=== PATIENT | male | born 1975 | race African-American/Black ===

== ENCOUNTER 2020-11-01 18:58 | Inpatient (IN) | payer OTHER, SELFPAY ==
[~2020-11-01] VITALS: Ht 170.2 cm; Wt 104.3 kg
[2020-11-01 19:23] VITALS: BP 206/117
--- NOTE | 2020-11-01 19:45 | NUR ---
RECEIVED PT FROM TRIAGE, HE IS AOX4 ON ROOM AIR CC LWFT LOWER LEG WOUND. WOUND IS OPEN WITH WOUND BED YELLOW EDGES OF WOUND IS DARK, PT SAID THERE IS MILD GINNY IN WOUND, MOSTLY PT IS ANXIOUS WITH ELEVATED B/P.
[2020-11-01] MEDS ORDERED: LABETALOL 100 MG/20 ML VIAL IVP ONE ×2 (20:00→22:10)
[2020-11-01] MEDS ORDERED: cefTRIAXone 2,000 MG in DEXTROSE 5% 100 ML IV ONE (20:00)
[2020-11-01] MEDS ORDERED: cefTRIAXone 2,000 MG VIAL ONE (20:26)
[2020-11-01 20:42] LABS: BASOPHILS % (AUTO) 0.6 % (0.0-2.0); EOSINOPHILS # (AUTO) 0.2 K/uL (0-0.4); HEMATOCRIT 42.2 % (36-52); LYMPHOCYTES # (AUTO) 1.9 K/uL (2.0-11.5); LYMPHOCYTES % (AUTO) 34.5 % (20.5-51.1); MEAN CORPUSCULAR HEMOGLOBIN 27 pg (27-31); MEAN CORPUSCULAR HGB CONC 33 g/dL (33-37); MEAN CORPUSCULAR VOLUME 82.7 fL (80-94); MONOCYTES # (AUTO) 0.3 K/uL (0.8-1.0); MONOCYTES % (AUTO) 5.9 % (1.7-9.3); NEUTROPHILS # (AUTO) 3.1 K/uL (1.8-7.7); PLATELET COUNT (AUTO) 213 K/uL (140-450); RED BLOOD CELL COUNT(AUTO) 5.11 MIL/uL (4.20-6.10); WHITE BLOOD COUNT (AUTO) 5.5 K/uL (4.8-10.8)
--- NOTE | 2020-11-01 20:45 | NUR ---
PT B/P WAS RETAKEN AND TI WAS 236/124, NOTIFED WHOM ORDERED 20MG LABETALOL IVP. IV SITE PROVIDED TO RIGHT HAND 22G X1 ATTEMPT. LABETALOL GIVEN, WELL ORDERED 2MG ROCEPHINE LABS DONE AT BEDSIDE. TEACHING REGARDING MEDICATIONS AND IT 'S PURPOSES PROVIDED TO PT AND FAMILY AT BEDSIDE, ACKNOWLEDGED EDUCTION.
[2020-11-01 21:07] LABS: ALBUMIN 4.2 g/dL (3.4-5.0); ANION GAP 15.3 (8-16); CARBON DIOXIDE 27.8 mmol/L (21-32); CREATININE 1.1 mg/dL (0.6-1.3); POTASSIUM 4.1 mmol/L (3.5-5.1); TOTAL BILIRUBIN 0.3 mg/dL (0.0-1.0)
--- NOTE | 2020-11-01 21:24 | NUR ---
AT BEDSIDE, PIC OF WOUND AND MEASUREMENT DONE, 1.5CM X1CM X0.5DEPTH. WOUND BED DRAINDG SEROSANGENOUS FLUID ALSO NOTED WITH YELLOW SLOUGH OF WOUND BED.
--- NOTE | 2020-11-01 21:48 | NUR ---
X-Ray at bedside.
--- NOTE | 2020-11-01 21:58 | NUR ---
REASSES OF B/P IS 223/110 NOTIFED MD SHE WILL ORDER ORAL B/P MEDS.
[2020-11-01] MEDS ORDERED: amLODIPine 5 MG TAB PO ONE (22:10)
[2020-11-01] MEDS ORDERED: MORPHINE SULFATE 2 MG/ML SYR IVP PRN ×2 (22:55→23:00)
[2020-11-01] MEDS ORDERED: NACL 0.9% 1,000 ML IV SCH (22:55)
[2020-11-01] MEDS ORDERED: ACETAMINOPHEN 325 MG TAB PO PRN (22:55)
[2020-11-01] MEDS ORDERED: ONDANSETRON 4 MG/2 ML VIAL IVP PRN (22:55)
[2020-11-01] MEDS ORDERED: VANCOMYCIN PER PHARMACY MC PRN ×2 (23:00→23:15)
[2020-11-01] MEDS ORDERED: INSULIN LISPRO SLIDING SCALE 100 UNITS/ML VIAL SUBQ PRN (23:00)
[2020-11-01] MEDS ORDERED: DEXTROSE 50% 50 ML SYR IVP PRN ×2 (23:00→23:15)
[2020-11-02] MEDS ORDERED: VANCOMYCIN 1,000 MG VIAL ONE (00:06)
[2020-11-02] MEDS ORDERED: VANCOMYCIN 500 MG in DEXTROSE 5% 100 ML IV ONE (00:30)
[2020-11-02] MEDS ORDERED: VANCOMYCIN 1GM/DEXT 5% PREMIX 200 ML IV ONE (00:30)
[2020-11-02] MEDS: NACL 0.9% 1,000 ML IV SCH ×4 (01:00→23:04)
--- NOTE | 2020-11-02 01:00 | NUR ---
HUNG ORDERED VANCOMYCIN WELL ORDERED FLUIDS OF N/S. RETAKE OF V/S FOLLOWS: T 97.7 P 66 R 20 B/P 175/95 02 99% ON ROOM AIR.
--- NOTE | 2020-11-02 02:12 | NUR ---
BLOOD PRESSURE RECHECK IS 174/90 WILL CONTINUE TO MONITOR PT B/P.
--- NOTE | 2020-11-02 06:10 | NUR ---
PT IN BED RESTING WITH EYES CLOSED V/S FOLLOWS: T 97.9 P 60 R 15 B/P 127/57 02 100% ON ROOM AIR.
[2020-11-02 06:20] LABS: BASOPHILS % (AUTO) 0.6 % (0.0-2.0); EOSINOPHILS # (AUTO) 0.1 K/uL (0-0.4); EOSINOPHILS % (AUTO) 1.9 % (0.0-4.0); HEMATOCRIT 40.4 % (36-52); HEMOGLOBIN 13.4 g/dL (12.0-18.0); LYMPHOCYTES # (AUTO) 1.8 K/uL (2.0-11.5); LYMPHOCYTES % (AUTO) 29.3 % (20.5-51.1); MEAN CORPUSCULAR HEMOGLOBIN 28 pg (27-31); MEAN CORPUSCULAR HGB CONC 33 g/dL (33-37); MEAN CORPUSCULAR VOLUME 82.9 fL (80-94); MONOCYTES # (AUTO) 0.4 K/uL (0.8-1.0); MONOCYTES % (AUTO) 6.3 % (1.7-9.3); NEUTROPHILS # (AUTO) 3.7 K/uL (1.8-7.7); NEUTROPHILS % (AUTO) 61.9 % (42.2-75.2); PLATELET COUNT (AUTO) 191 K/uL (140-450); RED BLOOD CELL COUNT(AUTO) 4.87 MIL/uL (4.20-6.10); RED CELL DISTRIBUTION WIDTH 13.7 % (11.6-13.7); WHITE BLOOD COUNT (AUTO) 6.1 K/uL (4.8-10.8)
[2020-11-02] MEDS: INSULIN LISPRO SLIDING SCALE 100 UNITS/ML VIAL SUBQ PRN ×4 (06:33→21:03)
--- NOTE | 2020-11-02 06:45 | NUR ---
FINGERSTICK IS 310, PT GIVEN 8 UNITS OF HUMALOG PER SLIDING SCALE. EDUCATED REGARDING DIABETITES PROTOCOL, PT VERBELIZED UNDERSTADING OF DIABETES TEACHING AND INSULIN.
[2020-11-02 06:55] LABS: ALBUMIN 3.5 g/dL (3.4-5.0); ANION GAP 13.6 (8-16); CARBON DIOXIDE 26.1 mmol/L (21-32); CREATININE 1.1 mg/dL (0.6-1.3); POTASSIUM 3.7 mmol/L (3.5-5.1); TOTAL BILIRUBIN 0.2 mg/dL (0.0-1.0)
--- NOTE | 2020-11-02 07:15 | NUR ---
REPORT RECEIVED FROM SHILA SAGE FOR CONTINUITY OF CARE
[2020-11-02] MEDS: BLOOD GLUCOSE MONITORING 1 DEV DEV FS SCH ×4 (07:30→20:55)
[2020-11-02] MEDS ORDERED: BLOOD GLUCOSE MONITORING 1 DEV DEV FS SCH (07:30)
--- NOTE | 2020-11-02 07:42 | NUR ---
RECEIVED REPORT FROM ED NURSE. AWAITING PT ARRIVAL TO [facility].
--- NOTE | 2020-11-02 07:45 | NUR ---
Patient will be admitted to care of DR MOREIRA. Admited to TELEMETRY. Will go to room 129 -A. Belongings list completed. Report to NABOR SAGE.
[2020-11-02 08:00] VITALS: BP 186/110
--- NOTE | 2020-11-02 08:01 | NUR ---
PT ARRIVED TO [facility]. ORIENTED TO ROOM. CALL LIGHT IN REACH. ALL SAFETY MEASURES IN PLACE.
--- NOTE | 2020-11-02 10:24 | NUR ---
PT RESTING. NO S/S OF DISTRESS. SYMMETRICAL CHEST RISE AND FALL. CALL LIGHT IN REACH. ALL SAFETY MEASURES IN PLACE
[2020-11-02] MEDS: VANCOMYCIN HCL 1.25 GM in NACL 0.9% 250 ML IV SCH ×2 (11:53→23:04)
[2020-11-02 12:00] VITALS: BP 186/110
--- NOTE | 2020-11-02 12:34 | NUR ---
DISCUSSED PLAN OF CARE WITH PT. PT VERBALIZED UNDERSTANDING. INFORMED PT OF WOUND CONSULT AND WOUND CARE TO BE PERFORMED.PATIENT VERBALIZED UNDERSTANDING. CALL LIGHT WITHIN REACH. ALL SAFETY MEASURES IN PLACE.
--- NOTE | 2020-11-02 14:42 | NUR ---
REASSESSED PT BP, 177/110. EDUCATED PT ABOUT PRN BLOOD PRESSURE MEDICATIONS PER MD ORDERS. PATIENT VERBALIZED UNDERSTANDING. CALL LIGHT WITHIN REACH. ALL SAFETY MEASURES IN PLACE.
--- NOTE | 2020-11-02 14:58 | NUR ---
FNS CONSULT FOR WOUNDS/PRESSURE INJURIES WAS RECEIVED. PATIENT WAS SCREENED HIGH NUTRITION RISK AND WILL BE ASSESSED 1-2 DAYS WITHIN ADMISSION. 11/02/20-11/03/[address]
[2020-11-02] MEDS: hydrALAZINE 10 MG TAB PO PRN (15:00)
--- NOTE | 2020-11-02 15:11 | NUR ---
WOUND CARE EVALUATION NOTE: LLE TRAUMA WOUND WITH FULL THICKNESS SKIN LOSS 2X1X0.5CM WOUND BED 50% GRANULATING TISSUE, 50% OF SCATTERED YELLOW SLOUGH, SMALL AMOUNT YELLOW SEROUS DRAINAGE, NO UNDERMINING, NO TUNNELING WOUND EDGE FLAT, ABNER WOUND SKIN DRY SCABBING SKIN WITH PIGMENTATION, NO SWELLING NO ERYTHEMA, NO INDURATION. PAIN 2/10. POC DISCUSSED WITH PRIMARY RN , AND PT. ALL QUESTIONS ANSWERED. WOUND CARE TEACHING DONE. PT. VERBALIZES UNDERSTANDING. PENDING ID CONSULT. RECOMMENDATION: -CLEANSE LLE WITH NS, PAT DRY, APPLY THERAHONEY GEL TO WOUND BED AND PACK WITH ADAPTIC DRESSING, COVER WITH DRY DRESSING QD AND PRN IF SOILING. PLEASE KEEP AREA DRY AND CLEAN. -PLEASE COMPLEAT ANTIBIOTIC ORDERED
--- NOTE | 2020-11-02 15:13 | NUR ---
PT EDUCATED ON ACCU CHECKS AND INSULIN COVERAGE. PATIENT VERBALIZED UNDERSTANDING. PT STABLE WITH NO S/S OF DISTRESS. CALL LIGHT IN REACH. ALL SAFETY MEASURES IN PLACE.
[2020-11-02 16:00] VITALS: BP 170/89
[2020-11-02] MEDS: THERAHONEY GEL 42.5 GM TP SCH (16:29)
--- NOTE | 2020-11-02 16:53 | NUR ---
PT RECEIVED INSULIN PER MD ORDERS. NO S/S OF DISTRESS. PATIENT RESTING WITH FAMILY IN ROOM. CALL LIGHT WITHIN REACH. ALL SAFETY MEASURES IN PLACE.
[2020-11-02 18:23] VITALS: BP 170/89
--- NOTE | 2020-11-02 19:12 | NUR ---
REPORT GIVEN TO NIGHT NURSE FOR CONTINUITY OF CARE. PT STABLE. CALL LIGHT IN REACH. ALL SAFETY MEASURES IN PLACE
[2020-11-02 20:48] VITALS: BP 158/94
[2020-11-02] MEDS: NACL 0.9% IRR 250 ML BOTTLE IR SCH (20:49)
[2020-11-03 00:18] VITALS: BP 156/97
[2020-11-03 04:35] VITALS: BP 157/110
--- NOTE | 2020-11-03 05:20 | NUR ---
PATIENT REFUSES MORNING LABORATORY BLOOD DRAW. RIMA PAULSON RN
[2020-11-03] MEDS: BLOOD GLUCOSE MONITORING 1 DEV DEV FS SCH ×4 (05:53→22:50)
[2020-11-03] MEDS: NACL 0.9% 1,000 ML IV SCH ×3 (05:53→22:37)
--- NOTE | 2020-11-03 05:56 | NUR ---
RETURNED TELEMETRY BOX TO [employer]TERATION TAILOR AND EDUCATED PATIENT ON LAB DRAW REFUSAL. HE AGREES WITH LATER DRAW FOR MORNING LABS. LAB NOTIFICATION SENT. RIMA PAULSON RN
[2020-11-03] MEDS: INSULIN LISPRO SLIDING SCALE 100 UNITS/ML VIAL SUBQ PRN ×3 (07:15→22:52)
--- NOTE | 2020-11-03 07:35 | NUR ---
RECEIVED BEDSIDE REPORT FROM FOLDING RULES PRINTING MACHINE OPERATOR NURSE FOR CONTINUITY OF CARE. PT IS AWAKE AND ALERT. A&OX4. ON RA WITH BREATHING UNLABORED. AMBULATORY. SKIN IS WARM AND DRY. PT IS STABLE. PLAN OF CARE DISCUSSED ALL SAFEETY MEASURES ON PLACE, CALLS LIGHT WITHIN REACH
--- NOTE | 2020-11-03 07:41 | NUR ---
PATIENT HANDOFF WITH CHU HUNT. RIMA PAULSON RN
[2020-11-03 08:00] VITALS: BP 148/95
--- NOTE | 2020-11-03 09:40 | NUR ---
PT SITTING ON BED NO COMPLAINS AT THIS TIME, HIS NEXT TO HIM, WOUND CULTURE WAS TAKEN. BLOOD WORK TAKEN. PT HAS NO COMPLAINS
[2020-11-03] MEDS: NACL 0.9% IRR 250 ML BOTTLE IR SCH ×2 (09:41→21:00)
[2020-11-03 10:43] LABS: BASOPHILS % (AUTO) 0.8 % (0.0-2.0); EOSINOPHILS # (AUTO) 0.2 K/uL (0-0.4); HEMATOCRIT 41.8 % (36-52); LYMPHOCYTES # (AUTO) 1.8 K/uL (2.0-11.5); MEAN CORPUSCULAR HEMOGLOBIN 27 pg (27-31); MEAN CORPUSCULAR HGB CONC 34 g/dL (33-37); MEAN CORPUSCULAR VOLUME 81.6 fL (80-94); MONOCYTES # (AUTO) 0.3 K/uL (0.8-1.0); NEUTROPHILS # (AUTO) 3.3 K/uL (1.8-7.7); NEUTROPHILS % (AUTO) 59.2 % (42.2-75.2); PLATELET COUNT (AUTO) 198 K/uL (140-450); RED BLOOD CELL COUNT(AUTO) 5.12 MIL/uL (4.20-6.10); RED CELL DISTRIBUTION WIDTH 13.8 % (11.6-13.7); WHITE BLOOD COUNT (AUTO) 5.6 K/uL (4.8-10.8)
--- NOTE | 2020-11-03 10:44 | NUR ---
DC PLANNING: CALLED DR CABA AND NOTIFIED HIM THAT DR ALDRIDGE ORDERED BONE SCAN AND OK TO CANCEL MRI. PER DR CABA TO HOLD OFF ON ORTHO CONSULT BECAUSE IT'S A CHRONIC AVULSION FRACTURE. CM TO FOLLOW Addendum: 11/05/20 at 1521 by Faye Byrnes RN DC PLANNING: FAXED THE ORDER TO [facility] , [place] , [facility] . [facility] DENIED THE CASE ,AWAITING FOR HOME HEALTH TO ACCEPT PATIENT Addendum: 11/05/20 at 1631 by Faye Byrnes RN DC PLANNING: RECEIVED A CALLED FROM [facility] STATED THEY ARE NOT CONTRACTED WITH [employer] CALLED [employer] [phone] LEFT AND MESSAGE.
[2020-11-03 10:50] LABS: ANION GAP 13.6 (8-16); CARBON DIOXIDE 25.4 mmol/L (21-32)
--- NOTE | 2020-11-03 11:13 | NUR ---
PT SITTING ON BED NO COMPLAINS AT THIS TIME, HIS NEXT TO HIM, PT SUPPOSED TO BONE SCAN TODAY, SCAN PROBABLY GONNA BE TOMORROW SINCE THE SCAN MACHINE NOT WORKING . ALL SAFETY MEASURES ON PLACE CALLS LIGHT WITHIN REACH
[2020-11-03] MEDS: VANCOMYCIN HCL 1.25 GM in NACL 0.9% 250 ML IV SCH ×2 (11:57→22:52)
[2020-11-03 12:00] VITALS: BP 149/94
[2020-11-03] MEDS: THERAHONEY GEL 42.5 GM TP SCH (13:00)
--- NOTE | 2020-11-03 13:25 | NUR ---
PT SITTING ON BED NO COMPLAINS AT THIS TIME, HIS NEXT TO HIM. PT HAS NO COMPLAINS ALL SAFETY MEASURES ON PLACE, CALLS LIGHT WITHIN REACH
--- NOTE | 2020-11-03 14:33 | NUR ---
11/03/20 RD INITIAL ASSESSMENT COMPLETED PLEASE REFER TO NUTRITION ASSESSMENT UNDER CARE ACTIVITY FOR ESTIMATED NUTRITIONAL NEEDS. [facility]. [facility] TOL[facility] 2. NUTRITIONAL EDUCATION WAS PROVIDED. 3. RD TO FOLLOW-UP 3-5 DAYS, MODERATE RISK FLOYD BERRIOS RD
--- NOTE | 2020-11-03 15:35 | NUR ---
WALKING IN HIS ROOM NO COMPLAINS AT THIS TIME, HIS NEXT TO HIM. PT HAS NO COMPLAINS ALL SAFETY MEASURES ON PLACE.
[2020-11-03 16:00] VITALS: BP 151/91
--- NOTE | 2020-11-03 16:52 | NUR ---
LATE ENTRY---- VANCOMYCIN DISCONTINUED AT 0745 UPON TRANSFER TO FLOOR. ROCEPHIN DISCONTINUED AT 0745 UPON TRANSFER TO FLOOR.
--- NOTE | 2020-11-03 17:40 | NUR ---
PT SITTING ON BED NO COMPLAINS AT THIS TIME, HIS NEXT TO HIM. PT HAS NO COMPLAINS ALL SAFETY MEASURES ON PLACE, CALLS LIGHT WITHIN REACH
--- NOTE | 2020-11-03 19:15 | NUR ---
report given to earthmoving plant operator nurse
[2020-11-03 21:29] VITALS: BP 160/82
[2020-11-04] MEDS: BLOOD GLUCOSE MONITORING 1 DEV DEV FS SCH ×4 (05:13→21:39)
[2020-11-04 05:14] VITALS: BP 158/95
--- NOTE | 2020-11-04 06:03 | NUR ---
PATIENT REFUSES MORNING LAB PER MITERING MACHINE OPERATOR MARIA ELENA. RIMA PAULSON RN
[2020-11-04] MEDS: NACL 0.9% 1,000 ML IV SCH ×2 (06:43→15:02)
--- NOTE | 2020-11-04 07:10 | NUR ---
RECEIVED BEDSIDE REPORT FROM MANAGEMENT ACCOUNTANT NURSE FOR CONTINUITY OF CARE. PT IS AWAKE AND ALERT. A&OX4. ON RA WITH BREATHING UNLABORED. PT IS AMBULATORY INDEPENDENTLY. SKIN IS WARM, DRY, AND INTACT. IV IS IN THE RIGHT HAND 22 GAUGE RUNNING NS AT 125 ML/HR. PT IS STABLE. PLAN OF CARE DISCUSSED.
--- NOTE | 2020-11-04 07:38 | NUR ---
HANDOFF WITH DAVID MARTELL RN. RIMA PAULSON RN
[2020-11-04 08:00] VITALS: BP 129/62
[2020-11-04] MEDS ORDERED: LOSARTAN 25 MG TAB PO SCH ×2 (09:00→15:15)
--- NOTE | 2020-11-04 09:30 | NUR ---
PT IS STABLE AT THIS TIME. SITTING UP IN THE CHAIR WATCHING TV. IV IS PATENT AND INTACT. NO DISTRESS NOTED. PT DENIES PAIN. DRESSING DRY AND INTACT ON WOUND.
[2020-11-04] MEDS: NACL 0.9% IRR 250 ML BOTTLE IR SCH ×2 (10:03→21:36)
--- NOTE | 2020-11-04 10:42 | NUR ---
SPOKE TO PT AND AT BEDSIDE. THEY INQUIRED ABOUT THE BONE SCAN THAT IS SUPPOSED TO BE DONE PER MD. ASKED DR. CABA AND HE PLACED THE ORDER FOR CT BONE SCAN LIMITED. CALLED RADIOLOGY DEPARTMENT AND INFORMED THEM OF THE BONE SCAN. THEY STATED THEY WOULD CONTACT THE TECH THAT WAS CURRENTLY AT [facility] TO COMPLETE EXAM.
--- NOTE | 2020-11-04 10:53 | NUR ---
SPOKE TO MARVEL FROM [facility]. HE INFORMED ME THAT [facility] WILL BE COMING TO DO THE BONE SCAN AT 12 PM OF THE LEFT LOWER EXTREMITY. NO DIETARY RESTRICTIONS NECESSARY.
[2020-11-04] MEDS: VANCOMYCIN HCL 1.25 GM in NACL 0.9% 250 ML IV SCH (11:39)
[2020-11-04] MEDS: hydrALAZINE 10 MG TAB PO PRN (11:50)
--- NOTE | 2020-11-04 11:51 | NUR ---
CHECKED PT'S BP REQUESTED. BP WAS 191/112 AND HR 78. PT DENIES PAIN OR AGITATION. HYDRALAZINE 10 MG PO PRN WAS GIVEN ORDERED FOR SBP OVER 160. MEDICATION EDUCATION WAS PROVIDED AND PT VERBALIZED UNDERSTANDING.
[2020-11-04] MEDS: INSULIN LISPRO SLIDING SCALE 100 UNITS/ML VIAL SUBQ PRN ×3 (12:08→21:45)
--- NOTE | 2020-11-04 13:06 | NUR ---
BONE SCAN IN PROCESS WITH TECH AT BEDSIDE.
[2020-11-04] MEDS: THERAHONEY GEL 42.5 GM TP SCH (13:12)
--- NOTE | 2020-11-04 13:50 | NUR ---
BONE SCAN IS COMPLETE. TECH WILL BE BACK IN FOUR HOURS FOR ONE LAST SCAN. ENCOURAGED PT TO DRINK PLENTY OF WATER BEFORE THE NEXT SCAN. PT IS STABLE AT THIS TIME. WILL CONTINUE TO MONITOR.
--- NOTE | 2020-11-04 14:56 | NUR ---
RECHECKED PT'S BP AND IT WAS 191/112 AND HR IS 78. REPORTED THIS FINDING TO DR. CABA AND ALSO INFORMED HIM THAT PT WAS GIVEN LOSARTAN ORDERED AND ALSO HYDRALAZINE PRN [address] CABA STATED HE WOULD PLACE AN ADDITIONAL ORDER FOR ELEVATED BP. WILL WAIT FOR ORDER TO BE PLACED TO ADMINISTER.
--- NOTE | 2020-11-04 15:17 | NUR ---
INFORMED PT OF THE MEDICATION ORDERED, LOSARTAN. PT REFUSED TO HAVE BP CHECKED IN ORDER TO ADMINISTER MEDICATION. PT REFUSED MEDICATION AT THIS TIME. INFORMED PT OF IMPORTANCE OF MEDICATION AND PT VERBALIZED UNDERSTANDING. PT STILL REFUSED TO TAKE BP AND REFUSED MEDICATION AT THIS TIME. HE TOLD ME TO COME BACK IN ONE HOUR TO RECHECK BP.
--- NOTE | 2020-11-04 16:09 | NUR ---
PT ALLOWED ME TO TAKE BP READING AND ADMINISTER LOSARTAN ORDERED BY PHYSICIAN. MEDICATION EDUCATION WAS PROVIDED AND PT VERBALIZED UNDERSTANDING.
--- NOTE | 2020-11-04 17:00 | NUR ---
PT REFUSED TO HAVE BLOOD PRESSURE TAKEN AT THIS TIME. PT ASKED TO HAVE BLOOD PRESSURE TAKEN IN AN HOUR. WILL RECHECK IN AN HOUR.
--- NOTE | 2020-11-04 18:00 | NUR ---
AFTER PROMPTING PT ALLOWED ME TO RECHECK BP AND IT WAS 165/100. BP HAS DECREASED FROM PREVIOUS READING. PT DENIES PAIN AT THIS TIME OR ANY DISTRESS. WILL CONTINUE TO MONITOR BP.
--- NOTE | 2020-11-04 18:07 | NUR ---
BS READING IS 166. PT WAS GIVEN 2 UNIT HUMALOG INSULIN PER SLIDING SCALE.
--- NOTE | 2020-11-04 18:14 | NUR ---
CALLED RADIOLOGY DEPARTMENT AND ASKED WHEN THE TECH FROM [facility] WAS GOING TO COME BACK FOR THE BONE SCAN BECAUSE HE STATED WHEN HE LEFT AROUND 2 PM THAT HE WOULD BE BACK IN 4 HOURS FOR A SECOND SET OF PICTURES. SHE SAID SHE WOULD CALL [facility] AND CALL BACK SOON.
--- NOTE | 2020-11-04 18:39 | NUR ---
SPOKE TO RADIOLOGY AND THEY INFORMED ME THAT THE TECH FROM [facility] WILL BE HERE AT 8 PM. ENDORSED INFORMATION TO PT.
--- NOTE | 2020-11-04 18:59 | NUR ---
CHECKED PT'S BP PRIOR TO SHIFT CHANGE AND THE BP WAS 173/103. PAGED AND SPOKE TO DR. GIMENEZ. INFORMED HIM THAT I GAVE TWO DOSES OF LOSARTAN AT 25 MG PO AND HYDRALAZINE [address] GIMENEZ PLACED ORDER TO CHANGE PRN ORDER FROM HYDRALAZINE 10 MG PO TO 50 MG PO FOR SBP OVER 160. [address] ORDER AND ENDORSE TO GRAY MIXING OPERATOR NURSE.
[2020-11-04] MEDS ORDERED: hydrALAZINE 25 MG TAB PO PRN (19:05)
--- NOTE | 2020-11-04 19:05 | NUR ---
ENDORSED PT TO PHYSICAL CHEMIST NURSE FOR CONTINUITY OF CARE. INFORMED NURSE THAT PT'S BP WAS 173/103 AND THAT NEW HYDRALAZINE ORDER WAS JUST PLACED PRN FOR ELEVATED BP. PT IS STABLE AT THIS TIME. PLAN OF CARE DISCUSSED.
[2020-11-04 20:00] VITALS: BP 208/106
[2020-11-05] MEDS: VANCOMYCIN HCL 1.25 GM in NACL 0.9% 250 ML IV SCH ×2 (00:47→11:39)
[2020-11-05] MEDS: NACL 0.9% 1,000 ML IV SCH ×3 (00:48→15:00)
[2020-11-05] MEDS: LABETALOL 100 MG/20 ML VIAL IVP PRN ×2 (01:16→11:44)
--- NOTE | 2020-11-05 06:13 | NUR ---
Patient B/P was elevated at the time of 1999 BP 190 SBP assessment but patient refused interventions stating that he had just been pocked and had just had x-rays so he was still stressed and wanted vitals reassessed at another time. RN came back to reassess the patients BP and it was 208/106 so Hydralazine 50mg po was given as needed. B/P was reassessed again for follow up and B/P remained elevated at 193/96 so non morse intercept technician was notified. Dr. Roberts ordered labatelol 20mg IV push q4h PRN for SBP above 160. Labetolol was then given via IV push as ordered. V/S was reassessed again BP was still elevated at 166/92 but patient did not want any more interventions stating he just wanted to rest and we can reassess B/P later that it will decrease if we let him sleep. MINISTER ASSISTANT attempted to take BP as scheduled for a 4am round but patient refused telling aid to do them later. Lab lamp shade joiner tech also attempted to collect labs from the patient but he refused and was non compliant with care even with educatio on risk and benefits provided. Will endorse to am nurse interventions taken and new orders placed for continuity of care.
[2020-11-05] MEDS: BLOOD GLUCOSE MONITORING 1 DEV DEV FS SCH ×3 (06:45→15:21)
--- NOTE | 2020-11-05 07:21 | NUR ---
PT HAS BEEN ENDORSED BY CUSTOMER SERVICER NURSE FOR CONTINUITY OF CARE, POC DISCUSSED. PT IS ASLEEP IN BED WITH CHEST RISING AND FALLING EVEN AND UNLABORED, AND ON ROOM AIR. PT IS MEDSURG STATUS. PT HAS LEFT BUSH DIABETIC ULCER. PT HAS A LEFT HAND 22G SALINE LOCK, PT REFUSES TO STAY HOOKED UP TO IV FLUIDS. LAST BLOOD GLUCOSE WAS 141, NO INSULIN NEEDED PER SLIDING SCALE. PENDING BONE SCAN TO RULE OUT OSTEOMYELITIS. PT REFUSED MORNING LABS. ALL SAFETY MEASURES IN PLACE, CALL LIGHT WITHIN REACH. PT IS STABLE. WILL CONTINUE TO MONITOR.
--- NOTE | 2020-11-05 08:37 | NUR ---
MIGUEL MEDICATION ADMINISTERED PER MD ORDER, PT EDUCATION PROVIDED. ALL QUESTIONS ANSWERED. PT ACCEPTED MEDICATION, REFUSED VITAL SIGNS. PT SHOWS NO S/S OF DISTRESS. WILL FOLLOW UP
[2020-11-05] MEDS: NACL 0.9% IRR 250 ML BOTTLE IR SCH (08:57)
[2020-11-05] MEDS ORDERED: LOSARTAN 50 MG TAB PO SCH (09:00)
[2020-11-05] MEDS ORDERED: amLODIPine 5 MG TAB PO SCH (09:00)
--- NOTE | 2020-11-05 10:24 | NUR ---
PT ALLOWED FOR VITAL SIGNS TO BE TAKEN. BP ELEVATED TO 184/100, WILL MEDICATE PER MD ORDER.
[2020-11-05] MEDS: THERAHONEY GEL 42.5 GM TP SCH (11:39)
[2020-11-05] MEDS: INSULIN LISPRO SLIDING SCALE 100 UNITS/ML VIAL SUBQ PRN (11:44)
--- NOTE | 2020-11-05 11:58 | NUR ---
ADMINISTERED MIGUEL MEDICATION, PRN MEDICATION, AND INSULIN COVERAGE. PT EDUCATION PROVIDED. PT ACCEPTED MEDICATION. DR AT BEDSIDE EXPLAINING PLAN OF CARE. PT VERBALIZED DESIRE TO GO HOME. DR EDUCATED ON INFECTION, AND STATED HE WILL CALL THE INFECTION DR. PT VERBALIZED UNDERSTANDING. PT IS STABLE. WILL CONTINUE TO MONITOR.
[2020-11-05] MEDS ORDERED: Therahoney Gel TP (12:35)
[2020-11-05] MEDS ORDERED: METF-1022 PO (12:35)
[2020-11-05] MEDS ORDERED: AMLO-3 PO (12:35)
[2020-11-05] MEDS ORDERED: CLIN300C2 PO (12:35)
[2020-11-05] MEDS ORDERED: SULF-59 PO (12:35)
[2020-11-05] MEDS ORDERED: LOSA50TA1 PO (12:37)
--- NOTE | 2020-11-05 13:44 | NUR ---
PT REFUSED REASSESSMENT OF VITAL SIGNS
--- NOTE | 2020-11-05 14:58 | NUR ---
PT VITAL SIGNS DECREASED 168/98
--- NOTE | 2020-11-05 14:59 | NUR ---
SPOKE WITH MARKETING COMMUNICATIONS SPECIALIST, BREN, STATED SHE IS WORKING ON FINDING HOME HEALTH BUT SHE WILL CALL PT WITH AN UPDATE, PT CAN BE DISCHARGED AND SHE WILL FOLLOW UP.
[2020-11-05 15:01] VITALS: BP 179/101
--- NOTE | 2020-11-05 15:47 | NUR ---
SPOKE WITH BREN, INFORMED HER OF PTS WISHES OF HAVING HIS CARE SERVICE CALLED, PROVIDED PHONE NUMBER AND NAME.
--- NOTE | 2020-11-05 17:34 | NUR ---
PT BLOOD GLUCOSE IS 142; NO INSULIN NEED PER MD ORDER. PT EDUCATION PROVIDED ON DISCHARGE INSTRUCTIONS, FOLLOW UP WITH PCP 2-3 DAYS, FOR WOUND MANAGEMENT, DIABETES, AND HYPERTENSION. PT EDUCATED ON MEDICATION, SIDE EFFECTS, TAKE PRESCRIBED ETC. EDUCATED ON WOUND CARE, PROVIDED 5 DAYS WORTH OF DRESSING CHANGES. INFORMED PT OF CASE MANAGEMENTS EFFORTS IN FINDING HOME HEALTH AND WILL FOLLOW UP BY PHONE THE NEXT DAY. PT VERBALIZED UNDERSTANDING. ANSWERED ALL OF PT AND PTS WIFES QUESTIONS. PT IS IN STABLE CONDITION, WITH NO COMPLAINTS. WOUND DRESSING CHANGE COMPLETED AT ROUGHLY 1300. PT IS STABLE AND HAS ALL PERSONAL BELONGINGS. IV REMOVED AND CATH INTACT. ID BAND REMOVED. ALL DISCHARGE PAPERWORK SIGNED.
[2020-11-06] MEDS ORDERED: amLODIPine 5 MG TAB PO SCH (09:00)
== END 2020-11-05 17:40 | disposition home or self-care (01) | DRG 380 ==
LOC: MED 18:58 → INTOOBSV 23:06 → OBSVTOIN 23:06 → MTU 23:06 → MMU 11-02 06:12 → OBSVTOIN 11-02 10:59
PROVIDERS: ADMIT Hospitalist; ATTEND Hospitalist
DX: E11.622 Type 2 diabetes mellitus with other skin ulcer (principal); L97.929 Non-pressure chronic ulcer of unspecified part of left lower leg with unspecified severity; E11.65 Type 2 diabetes mellitus with hyperglycemia; Z20.822 Contact with and (suspected) exposure to COVID-19; I10 Essential (primary) hypertension; Z88.0 Allergy status to penicillin; Z82.49 Family history of ischemic heart disease and other diseases of the circulatory system; Z83.3 Family history of diabetes mellitus
CPT/HCPCS: 96365; 96375; 99285; G0378; 36415; 73590; 78300; 80048; 80053; 80202; 82948; 83036; 83605; 83735; 85025; 85651; 86140; 86886; 86900; 86901; 87040; 87070; 87081; 87186; J0696; J3370; J3490; J7030; J7060; Q0092